=== PATIENT | female | born 1970 | race Caucasian/White ===

== ENCOUNTER 2019-08-03 13:44 | Inpatient (IN) | payer OTHER ==
[~2019-08-03] VITALS: Ht 160 cm; Wt 54.1 kg
[~2019-08-03 13:44] MED LIST: AMOX1TAB9 PO; ATOR40TA68 PO; CEPH500C PO; CLOT24CR4 TOP; EMPA25TA PO; ERGO500013 PO; GLIM4TAB3 PO; INSU100I33 SC; LEVO500T48 PO; METF850T13 PO; PIOG15TA67 PO; SITA25TA3 PO
[2019-08-03] MEDS ORDERED: KETOROLAC 15 MG INJ IV STA (20:11)
[2019-08-03] MEDS ORDERED: CLINDAMYCIN 900 MG (PMX) 50 ML IVPB SCH (21:00)
[2019-08-03] MEDS ORDERED: ONDANSETRON 4 MG INJ IV PRN (22:30)
[2019-08-03] MEDS ORDERED: ACETAMINOPHEN 325 MG TAB PO PRN (22:30)
[2019-08-04] MEDS ORDERED: HYDROCODONE/APAP (5/325) TAB PO PRN ×2
[2019-08-04] MEDS ORDERED: ACETAMINOPHEN 325 MG TAB PO PRN
[2019-08-04] MEDS ORDERED: VANCOMYCIN IV PER PHARMACY XX SCH
[2019-08-04] MEDS ORDERED: NACL 0.9% 3 ML SYG IV SCH
[2019-08-04] MEDS ORDERED: ALBUTEROL/IPRATROPIUM (NEB) 3 ML AMP HHN PRN
[2019-08-04] MEDS ORDERED: ONDANSETRON 4 MG INJ IV PRN
[2019-08-04] MEDS: CEFEPIME 1GM/50 ML (PMX) 50 ML IVPB SCH ×3 (00:26→20:22)
[2019-08-04] MEDS ORDERED: GLUCOSE GEL 15 GRAM TUBE PO PRN ×2 (01:00)
[2019-08-04] MEDS ORDERED: GLUCAGON 1 MG INJ IM PRN (01:00)
[2019-08-04] MEDS ORDERED: GLUCOSE GEL 15 GRAM TUBE BUCCAL PRN (01:00)
[2019-08-04] MEDS ORDERED: DEXTROSE 50% 50 ML SYRINGE IV PRN ×2 (01:00)
[2019-08-04] MEDS ORDERED: VANCOMYCIN HCL 1.75 GM in SOD CHLORIDE 0.9% 500 ML IVPB SCH (02:30)
[2019-08-04] MEDS: ACCU-CHEK XX SCH ×7 (07:00→22:21)
[2019-08-04] MEDS: PIOGLITAZONE 15 MG TAB PO SCH (09:00)
[2019-08-04] MEDS ORDERED: NON-FORMULARY/PATIENT OWN MED (Sitagliptin* (Januvia*) 25 MG) PO SCH (09:00)
[2019-08-04] MEDS ORDERED: EMPAGLIFLOZIN 25 MG PO SCH (09:00)
[2019-08-04] MEDS: metFORMIN 850 MG TAB PO SCH ×2 (09:00→20:16)
[2019-08-04] MEDS: LINAGLIPTIN 5 MG TABLET PO SCH (09:00)
[2019-08-04] MEDS: EMPAGLIFLOZIN 10 MG TABLET PO SCH (09:01)
[2019-08-04] MEDS: HEPARIN 5,000 UNIT/1 ML VIAL SC SCH ×2 (11:31→20:26)
[2019-08-04] MEDS: VANCOMYCIN 1.25 GM/NS 250 ML 250 ML IVPB SCH (15:01)
[2019-08-04 17:30] VITALS: BP 144/67; PULSE 77; RESP 18
[2019-08-04 19:20] VITALS: BP 138/70; PULSE 79; RESP 18
[2019-08-04 20:10] VITALS: Ht 160 cm; Wt 54.1 kg
[2019-08-04] MEDS: ATORVASTATIN 40 MG TAB PO SCH (20:23)
[2019-08-04] MEDS ORDERED: INSULIN GLARGINE [LANtus] 3 ML PEN SC SCH (21:00)
[2019-08-04] MEDS: INSULIN GLARGINE [LANTus] (100 UNITS/ML) SYG SC SCH (22:27)
[2019-08-05 01:39] VITALS: BP 136/66; PULSE 79; RESP 18
[2019-08-05] MEDS: VANCOMYCIN 1.25 GM/NS 250 ML 250 ML IVPB SCH ×2 (03:16→16:17)
[2019-08-05 07:23] VITALS: BP 143/68; PULSE 73; RESP 17
[2019-08-05] MEDS: metFORMIN 850 MG TAB PO SCH ×2 (08:00→18:23)
[2019-08-05] MEDS: ACCU-CHEK XX SCH ×4 (08:00→20:35)
[2019-08-05] MEDS: LINAGLIPTIN 5 MG TABLET PO SCH (08:01)
[2019-08-05] MEDS: EMPAGLIFLOZIN 10 MG TABLET PO SCH (08:02)
[2019-08-05] MEDS: CEFEPIME 1GM/50 ML (PMX) 50 ML IVPB SCH ×2 (08:36→20:33)
[2019-08-05] MEDS: PIOGLITAZONE 15 MG TAB PO SCH (08:37)
[2019-08-05] MEDS: HEPARIN 5,000 UNIT/1 ML VIAL SC SCH ×2 (08:41→20:35)
[2019-08-05 14:14] VITALS: BP 120/67; PULSE 77; RESP 17
[2019-08-05 19:20] VITALS: BP 129/60; PULSE 72; RESP 18
[2019-08-05] MEDS: ATORVASTATIN 40 MG TAB PO SCH (20:32)
[2019-08-05] MEDS: INSULIN GLARGINE [LANTus] (100 UNITS/ML) SYG SC SCH (20:35)
[2019-08-06 02:03] VITALS: BP 131/65; PULSE 75; RESP 18
[2019-08-06] MEDS: VANCOMYCIN 1.25 GM/NS 250 ML 250 ML IVPB SCH ×2 (03:10→15:40)
[2019-08-06] MEDS: ACCU-CHEK XX SCH ×4 (07:00→20:28)
[2019-08-06 07:27] VITALS: BP 132/69; PULSE 75; RESP 16
[2019-08-06] MEDS: LINAGLIPTIN 5 MG TABLET PO SCH (08:25)
[2019-08-06] MEDS: EMPAGLIFLOZIN 10 MG TABLET PO SCH (08:26)
[2019-08-06] MEDS: PIOGLITAZONE 15 MG TAB PO SCH (08:26)
[2019-08-06] MEDS: CEFEPIME 1GM/50 ML (PMX) 50 ML IVPB SCH ×2 (08:26→20:27)
[2019-08-06] MEDS: metFORMIN 850 MG TAB PO SCH ×2 (08:29→18:05)
[2019-08-06] MEDS: HEPARIN 5,000 UNIT/1 ML VIAL SC SCH ×2 (08:29→20:31)
[2019-08-06 15:04] VITALS: BP 138/71; PULSE 77; RESP 16
[2019-08-06 19:31] VITALS: BP 126/73; PULSE 79; RESP 17
[2019-08-06] MEDS: ATORVASTATIN 40 MG TAB PO SCH (20:27)
[2019-08-06] MEDS: INSULIN GLARGINE [LANTus] (100 UNITS/ML) SYG SC SCH (20:32)
[2019-08-07 01:37] VITALS: BP 134/63; PULSE 69; RESP 16
[2019-08-07] MEDS: VANCOMYCIN 1.25 GM/NS 250 ML 250 ML IVPB SCH (02:12)
[2019-08-07] MEDS: ACCU-CHEK XX SCH ×2 (07:00→11:30)
[2019-08-07] MEDS: EMPAGLIFLOZIN 10 MG TABLET PO SCH (08:34)
[2019-08-07] MEDS: PIOGLITAZONE 15 MG TAB PO SCH (08:34)
[2019-08-07] MEDS: LINAGLIPTIN 5 MG TABLET PO SCH (08:34)
[2019-08-07] MEDS: metFORMIN 850 MG TAB PO SCH (08:37)
[2019-08-07] MEDS: HEPARIN 5,000 UNIT/1 ML VIAL SC SCH (08:37)
[2019-08-07] MEDS: CEFEPIME 1GM/50 ML (PMX) 50 ML IVPB SCH (08:38)
[2019-08-07 08:44] VITALS: BP 133/76; PULSE 77; RESP 16
[2019-08-07 13:51] VITALS: BP 146/75; PULSE 84; RESP 17
== END 2019-08-07 14:30 | disposition home or self-care (01) | DRG 603 ==
LOC: E/R 13:44 → 2NE 08-04 02:35
PROVIDERS: ADMIT Internal Medicine; ATTEND Internal Medicine
DX: L03.031 Cellulitis of right toe (principal); E11.9 Type 2 diabetes mellitus without complications; E78.5 Hyperlipidemia, unspecified; L60.0 Ingrowing nail
CPT/HCPCS: 36415; 73630; 80048; 80053; 80061; 80202; 82962; 83036; 83735; 84100; 84703; 85025; 85730; 87070; 96374; 96375; J0692; J1644; J1815; J1885; J3370; J7040